=== PATIENT | female | born 1980 | race Hispanic/Latino ===

== ENCOUNTER 2021-03-26 08:45 | Emergency (ER) | payer OTHER ==
[~2021-03-26] VITALS: Ht 162.6 cm; Wt 72.6 kg
[2021-03-26] MEDS ORDERED: SOLU-MEDROL 125MG VIAL IVP SCH (10:00)
[2021-03-26] MEDS ORDERED: FAMOTIDINE 20MG TAB PO ONE (10:00)
[2021-03-26] MEDS ORDERED: DiphenhydrAMINE HCL 50 MG/ML VIAL IM ONE (10:00)
[2021-03-26] MEDS ORDERED: SOLU-MEDROL 125MG VIAL IM SCH (11:00)
[2021-03-26 11:27] VITALS: BP 124/74
== END 2021-03-26 11:29 | disposition home or self-care (01) ==
LOC: EDH 08:45
DX: T78.49XA Other allergy, initial encounter (principal); Z79.52 Long term (current) use of systemic steroids; W57.XXXA Bitten or stung by nonvenomous insect and other nonvenomous arthropods, initial encounter
CPT/HCPCS: 96372; J1200; J2930